=== PATIENT | male | born 1950 | race Caucasian/White ===

== ENCOUNTER 2024-12-03 03:25 | Emergency (ER) | payer MEDICARE, OTHER ==
[~2024-12-03] VITALS: Ht 175.3 cm; Wt 87.5 kg
[2024-12-03] MEDS ORDERED: Lovastatin10 MG (03:41)
[2024-12-03] MEDS ORDERED: Lisinopril2.5 MG (03:42)
[2024-12-03] MEDS ORDERED: HUMALOG100 UNIT/1 SC (03:42)
[2024-12-03] MEDS ORDERED: Ketorolac Tromethamine 15mg Vial IM ONE (04:40)
[2024-12-03] MEDS ORDERED: Lidocaine 4% 1 Patch TOP ONE (04:45)
[2024-12-03] MEDS ORDERED: LIDOCAINE1 EAC1 TOP (05:21)
[2024-12-03] MEDS ORDERED: CYCL10 PO (05:21)
[2024-12-03] MEDS ORDERED: FAMO20 PO (05:25)
== END 2024-12-03 06:01 | disposition home or self-care (01) ==
LOC: ER 03:25
DX: M54.50 Low back pain, unspecified (principal); Z79.4 Long term (current) use of insulin; Z79.899 Other long term (current) drug therapy; Z88.8 Allergy status to other drugs, medicaments and biological substances
CPT/HCPCS: 73502; 96372; 99283-25; A9270; J1885

== ENCOUNTER 2024-12-05 07:25 | Emergency (ER) | payer MEDICARE, OTHER ==
[~2024-12-05] VITALS: Ht 177.8 cm; Wt 87.5 kg
[~2024-12-05 07:25] MED LIST: CYCL10 PO; FAMO20 PO; HUMALOG100 UNIT/1 SC; LIDOCAINE1 EAC1 TOP; Lisinopril2.5 MG; Lovastatin10 MG
[2024-12-05] MEDS ORDERED: Ketorolac Tromethamine 30mg Vial IM ONE (10:35)
[2024-12-05] MEDS ORDERED: METPRE4DP PO (15:25)
[2024-12-05] MEDS ORDERED: HYDR1TAB94 PO (15:25)
== END 2024-12-05 15:37 | disposition home or self-care (01) ==
LOC: ER 07:25
DX: M51.26 Other intervertebral disc displacement, lumbar region (principal); E11.9 Type 2 diabetes mellitus without complications; Z79.4 Long term (current) use of insulin
CPT/HCPCS: 72148; 82947; 96372; 99284-25; J1885